=== PATIENT | female | born 1985 | race Caucasian/White ===

== ENCOUNTER 2017-05-31 01:51 | Emergency (ER) | payer SELFPAY ==
[2017-05-31 02:14] VITALS: BP 159/87; PULSE 93; RESP 18; TEMP 98.2; O2SAT 97
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
== END 2017-05-31 03:55 | disposition home or self-care (01) ==
LOC: H.ER 01:51
DX: S09.90XA Unspecified injury of head, initial encounter (principal); Y04.2XXA Assault by strike against or bumped into by another person, initial encounter